=== PATIENT | female | born 1955 | race Two or more races ===

== ENCOUNTER 2016-06-17 09:24 | Inpatient (IN) | payer MEDICARE, MEDICAID ==
[~2016-06-17] VITALS: Ht 162.6 cm; Wt 83.0 kg
[~2016-06-17 09:24] MED LIST: ACCUCHECK; AMIN30LI2 GT; ATOR10TA GT; CHOL200026 GT; DEXT15DR6 OP; DILT30TA2 GT; DOCU-25 GT; FOLI0.8T2 GT; FOLI1TAB16 GT; HYDR10SY12 GT; INSU100V10 SQ; LEVE1000 GT; LEVO50TA8 GT; LISI-603 GT; OMEP40CA37 GT
[2016-06-17] MEDS ORDERED: ONDA4TAB5 GT (09:47)
[2016-06-17] MEDS ORDERED: SIME80TA15 GT (09:47)
[2016-06-17] MEDS ORDERED: MIDO10TA GT (09:47)
[2016-06-17] MEDS ORDERED: GEMF600T GT (09:47)
[2016-06-17] MEDS ORDERED: ACET650S26 GT (09:47)
[2016-06-17] MEDS ORDERED: BLOO-668 IN (09:47)
[2016-06-17] MEDS ORDERED: MINE3.5O EACHEYE (09:47)
[2016-06-17] MEDS ORDERED: ASPI81TA2 GT (09:47)
[2016-06-17] MEDS ORDERED: HYDR-3326 GT (09:47)
[2016-06-17] MEDS ORDERED: IPRA3AMP IH ×2 (09:47)
[2016-06-17] MEDS ORDERED: INSU100V11 SQ (09:47)
[2016-06-17] MEDS ORDERED: CALC667T2 GT (09:47)
[2016-06-17] MEDS ORDERED: LEVE100S GT (09:47)
[2016-06-17] MEDS ORDERED: FERR220S2 GT (09:47)
[2016-06-17] MEDS ORDERED: SENN8.6T6 GT (09:47)
[2016-06-17] MEDS ORDERED: NUT.237L67 GT (09:48)
--- NOTE | 2016-06-17 09:51 | NUR ---
PT REC'D TO ER VIA EMS PT CAME FROM [facility] . WAS IN A CHAIR HAD 17 MINS LEFT FOR DIALYSIS . HAD SYNOPE EPI. AND WAS BROUGHT TO THE FLOOR COMPRESSIONS X3 . WHEN EMS ARRIVED PT HAD A PULSE AND WAS MOVING ARMS LEFT SHUNT WAS PULLED AND TUBING LEFT . RT FA 24G HEPLOCKED AND RT WRIST 20G HEPLOCKED LAB AT BEDSIDE LABS DRAWN SENT TO LAB. EKG DONE AND ABD LARGE GTUBE PRESENT PT HAD LARGE LITE BROWN STOOL . PT CLEANED AND SKIN ON BUTTOCKS CLEAR RECTAL TEMP 96.7 . PT RESPONSE TO COMMAONS . XRAY DONE .AWAITING EVALUATION BY ER PROVIDER.
[2016-06-17 10:06] LABS: BASOPHILS # (AUTO) 0.1 /CMM (0.0-0.2); BASOPHILS % (AUTO) 0.8 % (0.0-2.0); EOSINOPHILS # (AUTO) 0.2 /CMM (0.0-0.7); EOSINOPHILS % (AUTO) 1.9 % (0.0-6.0); HEMATOCRIT 38 % (33-45); HEMOGLOBIN 12.4 g/dL (11.5-14.8); LYMPHOCYTES # (AUTO) 0.7 /CMM (0.8-4.8); LYMPHOCYTES % (AUTO) 6.8 % (20.0-44.0); MEAN CORPUSCULAR HEMOGLOBIN 33 PG (26.0-33.0); MEAN CORPUSCULAR HGB CONC 32 g/dl (31.0-36.0); MEAN CORPUSCULAR VOLUME 102 fL (82-100); MONOCYTES # (AUTO) 0.7 /CMM (0.1-1.30); MONOCYTES % (AUTO) 6.5 % (2.0-12.0); PLATELET COUNT (AUTO) 177 /CMM (150-450); RED BLOOD CELL COUNT(AUTO) 3.75 MIL/uL (4.0-5.2); WHITE BLOOD COUNT (AUTO) 10.7 K/uL (4.3-11.0)
--- NOTE | 2016-06-17 10:09 | NUR ---
VENT 12 O2 PEEP5 40% SATS 97 %. RT AT BEDSIDE
[2016-06-17 10:15] VITALS: BP 127/54
[2016-06-17 10:23] LABS: TROPONIN I < 0.017 ng/mL (0.00-0.056)
[2016-06-17 10:26] LABS: ALANINE AMINOTRANSFERASE 29 U/L (12-78); ALBUMIN 3.3 g/dL (3.4-5.0); ALKALINE PHOSPHATASE 264 U/L (46-116); ASPARTATE AMINOTRANSFERASE 30 U/L (15-37); BILIRUBIN,DIRECT 0.2 mg/dL (0.0-0.2); BILIRUBIN,TOTAL 0.5 mg/dL (0.2-1.0); CALCIUM, SERUM 10.6 mg/dL (8.5-10.1); CARBON DIOXIDE 24 mmol/L (21-32); CHLORIDE 96 mmol/L (98-107); CREATININE 3.1 mg/dL (0.6-1.3); GFR 15 mL/min (>60); GLUCOSE 237 mg/dL (74-106); POTASSIUM 3.5 mmol/L (3.5-5.1); SODIUM SERUM 136 mmol/L (136-145); UREA NITROGEN, BLOOD 34 mg/dL (7-18)
[2016-06-17 10:28] LABS: INR 1.03 (0.87-1.13); PROTHROMBIN TIME 10.7 SECS (9.5-12.7)
--- NOTE | 2016-06-17 10:34 | NUR ---
PAGED PRIMARY SCHOOL PRINCIPAL FOR LINDSEY YATES DNP
--- NOTE | 2016-06-17 10:39 | NUR ---
PT GOING TO 111-2 JAY
--- NOTE | 2016-06-17 10:50 | NUR ---
DR SON ON THE PHONE WITH NANCY YATES
--- NOTE | 2016-06-17 11:01 | NUR ---
TD/RN REPORT FROM - ER RECEIVED REPORT FROM ER NURSE GREGG FOR PT TO BE ADMITTED FOR SYNCOPE, UNDER THE CARE OF DR. YATES. AWAITING FOR PT'S ARRIVAL.
--- NOTE | 2016-06-17 11:15 | NUR ---
TD/MECHANICAL CAD DESIGNER TO TD FLOOR - 113#1 PT ARRIVED VIA GURNEY FROM ER ACCOMPANIED BY ER NURSE GREGG, TRANSPORT AID AND TEACHER LIP READING, TRANSFERRED TO HOSPITAL BED. RECONNECTED TO VENTILATOR SET AT PRESCRIBED RATES, SUCTIONED FOR AIRWAY CLEARANCE, SATURATING @ 98%, LUNG SOUNDS CLEAR. PT ALERT, A/O X 1-2, FOLLOWS COMMAND, ON TELE WITH SINUS RHYTHM, HR 95. GT CLAMP FLUSHED, PATENT. AV SHUNT OF RIGHT UPPER ARM STILL DIALYSIS NEEDLES, POSITIVE OF THRILL & BRUIT. IV SITES FLUSHED, PATENT WITH NO S/S OF INFECTION. SKIN INTACT, NOTED WITH NO EDEMA IN THE EXTREMITIES, BUT NOTED WITH PERIORBITAL EDEMA. PT ADMITTED FOR SYNCOPE, UNDER THE CARE OF DR. YATES. [facility] REPORTED THAT PT WAS ON DIALYSIS TX FOR 2 HOURS AND 20 MINS BEFORE SYNCOPE EPISODE. PT IS COMFORTABLE AT THIS TIME. CL WITHIN REACHED AND SAFETY MAINTAINED. AWAITING FOR ADMITTING ORDERS. ON GOING MONITORING.
--- NOTE | 2016-06-17 11:19 | NUR ---
REPORT CALLED TO FLOOR 113/1 SEBASTIEN RN . RT GUZMAN PT STABLE FOR TRANSFER .
[2016-06-17 12:00] VITALS: BP 111/64
[2016-06-17] MEDS ORDERED: Z GUARD REMEDY 2 OZ OINT TP PRN (13:00)
[2016-06-17] MEDS ORDERED: HYDROCODONE/APAP 10/325MG 1 EA TABLET PO PRN (13:00)
[2016-06-17] MEDS ORDERED: NEPRO VAN 237 ML CAN GT SCH (13:00)
[2016-06-17] MEDS ORDERED: ONDANSETRON HCL/PF 4 MG/2 ML VIAL IVP PRN (13:00)
[2016-06-17] MEDS ORDERED: ACETAMINOPHEN 325 MG TABLET PO PRN (13:00)
[2016-06-17] MEDS ORDERED: SIMETHICONE 80 MG TAB.CHEW GT PRN (13:00)
[2016-06-17] MEDS ORDERED: IV SET PRIMARY PUMP SET 1 EA INFUS.SET MC ONE (14:00)
[2016-06-17] MEDS: CALCIUM ACETATE 667 MG TABLET GT SCH ×2 (14:06→21:11)
[2016-06-17] MEDS: IV NS 0.9% 1,000 ML IV PRN (14:07)
[2016-06-17 16:00] VITALS: BP 115/54
--- NOTE | 2016-06-17 16:00 | NUR ---
TD/RN AFTERNOON ROUNDS PT'S DAUGHTER AT BEDSIDE. PM CARE PROVIDED. NO ACUTE CHANGE OF CONDITION NOTED SINCE PT WAS ADMITTED EARLIER THIS MORNING. PT A/O X 3, ABLE TO MOUTH WORDS, FOLLOWS COMMAND. PER DAUGHTER PT HAD A PASSEY VALVE IN SNF TO COMMUNICATE. SCHEDULED PM MEDS GIVEN, GT FEEDING STARTED. PT IS COMFORTABLE. CL WITHIN REACHED AND SAFETY MAINTAINED. MONITORING CONTINUED.
[2016-06-17] MEDS: LEVETIRACETAM SOL (5 ML) 100 MG/ML UDC GT SCH (16:40)
[2016-06-17] MEDS: LANOLIN/MIN OIL/PETROLAT,WHT 3.5 GM TUBE OP SCH ×2 (16:40→21:13)
[2016-06-17] MEDS: SENNOSIDES 8.6 MG TABLET GT SCH (16:41)
[2016-06-17] MEDS: RENAL NOVASOURCE 1,000 ML BOTTLE GT SCH (16:44)
--- NOTE | 2016-06-17 19:12 | NUR ---
TD/RN AM SHIFT END NOTES NO ACUTE CHANGE OF CONDITION NOTED SINCE PT WAS ADMITTED EARLIER IN THE DAY. NEEDS MET. ON VENTILATOR SET AT PRESCRIBED RATES, GT FEEDING ON GOING @ 40CC/HR, IV SITE WITH ON GOING HYDRATION OF NS @ 75CC/HR, PATENT, NO S/S OF INFECTION. PT ENDORSED TO PM NURSE TO CONTINUE CARE. CL WITHIN REACHED AND SAFETY MAINTAINED.
[2016-06-17 20:00] VITALS: BP 109/48
--- NOTE | 2016-06-17 20:00 | NUR ---
Received patient resting oriented x 3.Mouth words.Denies pain or any discomfort. 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 SR per monitor.VS stable.Hemodynamically stable.GT feeding in progress.No Residual noted. HOB elevated. Turned and repositioned to comfort.Continue monitoring.
[2016-06-17] MEDS ORDERED: SECONDARY IV SET 1 EA INFUS.SET MC ONE (20:16)
[2016-06-17] MEDS ORDERED: INSULIN DETEMIR 100 UNIT/ML CARTRIDGE SQ ONE (20:24)
[2016-06-17] MEDS: ATORVASTATIN 10 MG TABLET GT SCH (21:12)
[2016-06-17] MEDS: INSULIN DETEMIR 100 UNIT/ML CARTRIDGE SQ SCH (21:59)
--- NOTE | 2016-06-17 22:00 | NUR ---
JAY RN NOTES BLOOD SUGAR AT 10PM IS 377 -LEVEMIR 30 UNITS GIVEN SQ ORDERED.
[2016-06-18] VITALS: BP 108/62
[2016-06-18] MEDS: IV NS 0.9% 1,000 ML IV PRN ×2 (02:43→17:30)
[2016-06-18 04:00] VITALS: BP 112/46
[2016-06-18] MEDS: LANOLIN/MIN OIL/PETROLAT,WHT 3.5 GM TUBE OP SCH ×3 (05:16→21:37)
[2016-06-18] MEDS: CALCIUM ACETATE 667 MG TABLET GT SCH ×3 (05:16→21:36)
--- NOTE | 2016-06-18 06:40 | NUR ---
Patient resting.VS stable.GT feeding well tolerated.Secretions suctioned PRN.Oral care done. Trach care done.Turned and repositioned.Complaints of gas pains and abdomen distended. Mylicon administered as PRN with some relief.All due meds given.Safety maintained.
[2016-06-18 07:20] LABS: BASOPHILS % (AUTO) 0.6 % (0.0-2.0); EOSINOPHILS # (AUTO) 0.4 /CMM (0.0-0.7); HEMATOCRIT 28 % (33-45); HEMOGLOBIN 9.2 g/dL (11.5-14.8); LYMPHOCYTES # (AUTO) 0.6 /CMM (0.8-4.8); LYMPHOCYTES % (AUTO) 11.2 % (20.0-44.0); MEAN CORPUSCULAR HEMOGLOBIN 34 PG (26.0-33.0); MEAN CORPUSCULAR HGB CONC 33 g/dl (31.0-36.0); MEAN CORPUSCULAR VOLUME 103 fL (82-100); MONOCYTES # (AUTO) 0.5 /CMM (0.1-1.30); MONOCYTES % (AUTO) 10.2 % (2.0-12.0); NEUTROPHILS # (AUTO) 3.6 /CMM (1.8-8.9); PLATELET COUNT (AUTO) 128 /CMM (150-450); RDW COEFFICIENT OF VARIATION 17.9 (11.5-15.0); RED BLOOD CELL COUNT(AUTO) 2.72 MIL/uL (4.0-5.2); WHITE BLOOD COUNT (AUTO) 5.2 K/uL (4.3-11.0)
--- NOTE | 2016-06-18 07:30 | NUR ---
RN NOTES RECEIVED PATIENT ON [facility] VENT WITH BREATHING NORMAL, EVEN AND UNLABORED. NO SOB NOTED. NO ACUTE DISTRESS NOTED. AFEBRILE. VENT SETTING REVIEWED AND VERIFIED. TOLERATED WELL. TELE MONITOR REVEALS SR, HR=80. IV R WRIST 20G IS PATENT AND INTACT, RUNNING IVF PER ORDER. ON GT FEED NOVASOURCE @ 40CC/HR. TOLERATED WELL. NO RESIDUAL NOTED. HOB ELEVATED. ASPIRATION PRECAUTION TAKEN. KEPT CLEAN, DRY AND COMFORTABLE. ALL NEEDS ATTENDED. SAFETY MEASURE OBSERVED. CALL LIGHT WITH IN REACH. WILL CONT TO MONITOR.
[2016-06-18 07:48] LABS: BILIRUBIN,TOTAL 0.4 mg/dL (0.2-1.0); CALCIUM, SERUM 8.5 mg/dL (8.5-10.1); CREATININE 3.8 mg/dL (0.6-1.3); PHOSPHORUS 3.3 mg/dL (2.5-4.9); POTASSIUM 4.1 mmol/L (3.5-5.1); THYROID STIMULATING HORMONE 2.01 uIU/mL (0.358-3.74)
[2016-06-18 07:49] LABS: ALBUMIN 2.5 g/dL (3.4-5.0); MAGNESIUM 1.6 mg/dL (1.8-2.4); TOTAL PROTEIN, SERUM 7.4 g/dL (6.4-8.2)
[2016-06-18 08:00] VITALS: BP 108/34
--- NOTE | 2016-06-18 08:00 | NUR ---
RN NOTES CALLED DR YATES REGARDING PATIENT CRITICAL GLUCOSE RESULTS. WAITING FOR CALL BACK.
--- NOTE | 2016-06-18 08:30 | NUR ---
RN NOTES CALLED DR YATES AGAIN REGARDING PATIENT CRITICAL GLUCOSE RESULTS. WAITING FOR CALL BACK. CHARGE NURSE SOON AWARE. WILL CONT TO MONITOR.
[2016-06-18] MEDS: ASPIRIN 81 MG TAB.CHEW GT SCH (08:36)
[2016-06-18] MEDS: LEVETIRACETAM SOL (5 ML) 100 MG/ML UDC GT SCH ×2 (08:36→17:24)
[2016-06-18] MEDS: SENNOSIDES 8.6 MG TABLET GT SCH ×2 (08:36→17:24)
--- NOTE | 2016-06-18 09:00 | NUR ---
RN NOTES STILL WAITING FOR CALL BACK FROM DR YATES REGARDING LAB RESULTS. CHARGE NURSE SOON AWARE. WILL CONT TO MONITOR.
--- NOTE | 2016-06-18 09:15 | NUR ---
RN NOTES MD DR SUAREZ MADE AWARE REGARDING PATIENT CRITICAL GLUCOSE RESULTS WITH NO SLIDING SCALE. RECEIVED ORDER TO START PATIENT ON MODERATED SLIDING SCALE WITH HIGH INSULIN DOSE PER LEVEL FOR NOW. ORDER NOTED AND CARRIED OUT. WILL CONT TO MONITOR.
[2016-06-18] MEDS ORDERED: DEXTROSE 50%-WATER 50 ML DISP.SYRIN IV PRN (09:30)
[2016-06-18] MEDS: BLOOD SUGAR DIAGNOSTIC 1 EACH STRIP IN SCH ×4 (09:41→23:15)
[2016-06-18] MEDS: INSULIN REGULAR, HUMAN 100 UNIT/ML 3 ML VIAL SQ PRN ×4 (09:44→23:21)
--- NOTE | 2016-06-18 10:00 | NUR ---
RN NOTES RECEIVED CALL FROM DR YATES. DR YATES MADE AWARE REGARDING NEW ORDER FROM DR SUAREZ FOR CRITICAL GLUCOSE RESULTS.
[2016-06-18 12:00] VITALS: BP 114/36
[2016-06-18] MEDS: FENOFIBRATE NANOCRYS (145 MG) 145 MG TABLET GT SCH (12:54)
--- NOTE | 2016-06-18 15:14 | NUR ---
PT IS HAVING DIALYSIS. PT IS ON VENT. SHE WILL CALL WHEN READY.
[2016-06-18] MEDS ORDERED: ALBUMIN 25% 25 GM in PREMIX 1 EA IV ONE (15:30)
[2016-06-18] MEDS ORDERED: SECONDARY IV SET 1 EA INFUS.SET MC ONE ×2 (15:43→20:25)
[2016-06-18 16:00] VITALS: BP 94/48
--- NOTE | 2016-06-18 19:02 | NUR ---
RN NOTES PATIENT ENDORSED TO NEXT SHIFT IN STABLE CONDITION WITH BREATHING NORMAL, EVEN AND UNLABORED. NO SOB NOTED. NO ACUTE DISTRESS NOTED. KEPT CLEAN, DRY AND COMFORTABLE. ALL NEEDS ATTENDED. SAFETY MEASURE OBSERVED. CALL LIGHT WITH IN REACH. WILL CONT TO MONITOR.
--- NOTE | 2016-06-18 19:13 | NUR ---
[facility]. [facility] WITH NOTED SETTINGS. VENT ALARM CHECKED AND AUDIBLE. VENT PLUGGED INTO RED OUTLET, TRACH SECURE IN AND IN PROPER POSITION. CUFF CHECKED LANG PATH THERAPIST. SXN SMALL AMOUNT OF THICK YELLOWISH SECRETIONS. NO RESPIRATORY DISTRESS NOTED AT THIS TIME. AMBU BAG AT BEDSIDE. WILL CONTINUE TO MONITOR.
--- NOTE | 2016-06-18 19:25 | NUR ---
RN NOTES RELAYED LAB RESULTS MAGNESIUM 1.[address] YATES WITH ORDER TO GIVE 3GM MAGNESIUM IV. ORDER NOTED AND CARRIED OUT. WILL CONT TO MONITOR.
[2016-06-18] MEDS ORDERED: Magnesium 1GM/D5W 100ML PREMIX PIGGYBACK IV ONE (19:30)
--- NOTE | 2016-06-18 19:56 | NUR ---
CAPSULE FILLER: PT IN BED WITH EYES CLOSED. RESPONDS TO VERBAL AND TACTILE STIMULATION. ON TRACH/VENT. TOLERATING THE SETTING WELL. ON TELE SR WITH PAC HR 83. NO DISTRESS OR DISCOMFORT NOTED. DENIES PAIN. IVF NS @ 75 ML/HR INFUSING WELL, NO S/S OF INFILTRATION NOTED RT WRIST # 20 G. GT FEEDING NOVASOURCE INFUSING AT 40 ML/HR, 0 ML RESIDUAL NOTED. REPOSITION HER FOR SKIN AND COMFORT MEASURES. FAMILY AT BED SIDE. SIDE RAILS UP X 3 AND CALL LIGHT WITHIN REACH. VSS. CONTINUE TO MONITOR HER.
[2016-06-18 20:00] VITALS: BP 124/51
[2016-06-18] MEDS ORDERED: Magnesium 1GM/D5W 100ML PREMIX 300 ML IV ONE (20:24)
[2016-06-18] MEDS: Magnesium 1GM/D5W 100ML PREMIX 100 ML IV SCH ×3 (20:29→22:40)
[2016-06-18] MEDS: ATORVASTATIN 10 MG TABLET GT SCH (21:36)
[2016-06-18] MEDS: RENAL NOVASOURCE 1,000 ML BOTTLE GT SCH (21:46)
[2016-06-18] MEDS: INSULIN DETEMIR 100 UNIT/ML CARTRIDGE SQ SCH (23:19)
[2016-06-19] VITALS (7 sets, daily range): BP systolic 99–151; BP diastolic 36–66
--- NOTE | 2016-06-19 02:05 | NUR ---
AUTOMOTIVE SERVICE TECHNICIAN PT C/O PAIN ALL OVER 08/26, NORCO 1 TAB VIA GT GIVEN. CONTINUE TO MONITOR HER.
--- NOTE | 2016-06-19 03:00 | NUR ---
JAY RN PAIN SUBSIDED 03/28. PT FALL ASLEEP, AROUSABLE. CONTINUE TO MONITOR HER.
[2016-06-19] MEDS: LANOLIN/MIN OIL/PETROLAT,WHT 3.5 GM TUBE OP SCH ×3 (05:21→21:57)
[2016-06-19] MEDS: CALCIUM ACETATE 667 MG TABLET GT SCH ×3 (05:21→21:54)
[2016-06-19] MEDS: BLOOD SUGAR DIAGNOSTIC 1 EACH STRIP IN SCH ×4 (05:21→23:27)
[2016-06-19] MEDS: INSULIN REGULAR, HUMAN 100 UNIT/ML 3 ML VIAL SQ PRN ×4 (05:21→23:30)
--- NOTE | 2016-06-19 06:35 | NUR ---
SOLE CUTTER NOTE PT IN BED ASLEEP, AROUSABLE. NO DISTRESS OR DISCOMFORT NOTED. DENIES PAIN. NO S/S OF HYPO OR HYPERGLYCEMIA NOTED. IVF INFUSING WELL NO S/S OF INFILTRATION NOTED. GT FEEDING INFUSING WELL, 0 ML RESIDUAL NOTED. KEPT HOB ELEVATED. KEPT HER DRY AND CLEAN. ALL NEEDS ATTENDED. SIDE RAILS UP X 2 AND CALL LIGHT WITHIN REACH. WILL ENDORSE TO DAY SHIFT NURSE FOR CONTINUE TO CARE.
--- NOTE | 2016-06-19 07:26 | NUR ---
PT IS UNRESPONSIVE , SUCTION DONE SMALL THIN AND WTHIT SECRETION COMES OUT . NO RESP DISTRESS Addendum: 06/19/16 at 0728 by MARCELINA DONOVAN RT Amended: Links added.
[2016-06-19 07:30] LABS: CALCIUM, SERUM 8.6 mg/dL (8.5-10.1); CREATININE 3.1 mg/dL (0.6-1.3); MAGNESIUM 2.5 mg/dL (1.8-2.4); PHOSPHORUS 2.7 mg/dL (2.5-4.9); POTASSIUM 3.7 mmol/L (3.5-5.1)
--- NOTE | 2016-06-19 07:30 | NUR ---
RN NOTES RECEIVED PATIENT ON [facility] VENT WITH BREATHING NORMAL, EVEN AND UNLABORED. NO SOB NOTED. NO ACUTE DISTRESS NOTED. AFEBRILE. VENT SETTING REVIEWED AND VERIFIED. TOLERATED WELL. TELE MONITOR REVEALS SR, HR=80. IV R WRIST 20G IS PATENT AND INTACT, RUNNING IVF PER ORDER. ON GT FEED NOVASOURCE @ 40CC/HR. TOLERATED WELL. NO RESIDUAL NOTED. HOB ELEVATED. ASPIRATION PRECAUTION TAKEN. KEPT CLEAN, DRY AND COMFORTABLE. ALL NEEDS ATTENDED. SAFETY MEASURE OBSERVED. CALL LIGHT WITH IN REACH. WILL CONT TO MONITOR.
[2016-06-19 08:10] LABS: BASOPHILS % (AUTO) 0.7 % (0.0-2.0); EOSINOPHILS # (AUTO) 0.5 /CMM (0.0-0.7); EOSINOPHILS % (AUTO) 9.6 % (0.0-6.0); HEMATOCRIT 30 % (33-45); LYMPHOCYTES # (AUTO) 0.7 /CMM (0.8-4.8); LYMPHOCYTES % (AUTO) 12.1 % (20.0-44.0); MEAN CORPUSCULAR HEMOGLOBIN 34 PG (26.0-33.0); MEAN CORPUSCULAR HGB CONC 33 g/dl (31.0-36.0); MEAN CORPUSCULAR VOLUME 102 fL (82-100); MONOCYTES # (AUTO) 0.4 /CMM (0.1-1.30); MONOCYTES % (AUTO) 7.9 % (2.0-12.0); NEUTROPHILS % (AUTO) 69.7 % (43.0-81.0); PLATELET COUNT (AUTO) 137 /CMM (150-450); RED BLOOD CELL COUNT(AUTO) 2.96 MIL/uL (4.0-5.2); WHITE BLOOD COUNT (AUTO) 5.7 K/uL (4.3-11.0)
[2016-06-19] MEDS: LEVETIRACETAM SOL (5 ML) 100 MG/ML UDC GT SCH ×2 (09:00→17:57)
[2016-06-19] MEDS: SENNOSIDES 8.6 MG TABLET GT SCH ×2 (09:00→17:57)
[2016-06-19] MEDS: FENOFIBRATE NANOCRYS (145 MG) 145 MG TABLET GT SCH (09:00)
[2016-06-19] MEDS: ASPIRIN 81 MG TAB.CHEW GT SCH (09:00)
--- NOTE | 2016-06-19 09:12 | NUR ---
SETTING IS THE SAME NO CHANGE . PT UNRESPONSIVE AND NO ANY RESPIRATORY DISTRESS.
--- NOTE | 2016-06-19 11:00 | NUR ---
PT HAD MODERATE THICK YELLOW SECRETION ON SUCTION. Addendum: 06/19/16 at 1104 by MARCELINA DONOVAN RT Amended: Links added.
[2016-06-19] MEDS: IV NS 0.9% 1,000 ML IV PRN (12:15)
--- NOTE | 2016-06-19 12:55 | NUR ---
SHE TRANSFERRED TO MEDIA BUYER FOR CAT SCAN. THEN RETURN BACK TO ROOM. NO DISTRESS. NO CHANGE IN SETTING Addendum: 06/19/16 at 1256 by MARCELINA DONOVAN RT Amended: Links added.
--- NOTE | 2016-06-19 17:50 | NUR ---
RN NOTES TRANSPORTATION CAME TO PICK PATIENT FOR DISCHARGE. PATIENT NOTED WITH BP 102/37. CALLED FACILITY AND SPEAK WITH HOLLIE QUIROGA, REFUSED TO TAKE PATIENT BACK WITH THIS BP. CALLED DR YATES AND RECEIVED ORDER TO GIVE BOLUS NS 250CC. ORDER NOTED AND CARRIED OUT. WILL CONT TO MONITOR.
[2016-06-19] MEDS ORDERED: SECONDARY IV SET 1 EA INFUS.SET MC ONE (18:22)
[2016-06-19] MEDS: IV NS 0.9% 250 ML IV ONE ×2 (18:29→18:34)
[2016-06-19] MEDS ORDERED: IV NS 0.9% 250 ML BAG IV ONE (18:30)
--- NOTE | 2016-06-19 20:00 | NUR ---
COTTON GINNER NOTE RECEIVED PT IN BED WITH EYES CLOSED. AROUSABLE. A/O X 2, FINNISH SPEAKING. ABLE TO RESPONDS TO VERBAL COMMANDS. CONTINUE TO VENT/TRACK. TOLERATING THE VENT SETTINGS. NO DISTRESS OR DISCOMFORT NOTED. DENIES PAIN. NS 250 ML BOLUS INFUSING AT THIS TIME DUE TO LOW BP. PT SUPPOSE TO BE DISCHARGED ONCE B/P IS STABLE. BP STILL ON LOW SIDE. SIDE RAILS UP X 3 AND CALL LIGHT WITHIN REACH. CONTINUE TO MONITOR HER.
--- NOTE | 2016-06-19 20:38 | NUR ---
PHILOSOPHY FACULTY NOTE BOLUS 250 NS FINISHED. B/P REMAIN LOW 87/34. DR KELECHI KAY, GAVE NEW ORDER TO KEEP THE PT IN HOSPITAL FOR TONIGHT, AND INCREASE THE NS TO 100 ML/HR. ORDER NOTED AND CARRIED OUT. INFORMED THE CHARGE NURSE ALMA.
--- NOTE | 2016-06-19 20:40 | NUR ---
SPIRAL WINDING MACHINE HELPER NOTE INFORMED THE PA FACILTY THAT PT'S B/P IS STILL LOW AND PT IS NOT GOING TO BE DISCHARGE TONIGHT.
[2016-06-19] MEDS: ATORVASTATIN 10 MG TABLET GT SCH (21:54)
[2016-06-19] MEDS: INSULIN DETEMIR 100 UNIT/ML CARTRIDGE SQ SCH (23:29)
[2016-06-20] VITALS: BP 122/44
[2016-06-20 00:02] VITALS: BP 122/44
[2016-06-20] MEDS ORDERED: IV NS 0.9% 1,000 ML ONE (01:22)
[2016-06-20] MEDS ORDERED: IV NS 0.9% 1,000 ML BAG IV PRN (01:30)
[2016-06-20 04:00] VITALS: BP 135/55
[2016-06-20] MEDS: CALCIUM ACETATE 667 MG TABLET GT SCH (05:53)
[2016-06-20] MEDS: LANOLIN/MIN OIL/PETROLAT,WHT 3.5 GM TUBE OP SCH (05:53)
[2016-06-20] MEDS: BLOOD SUGAR DIAGNOSTIC 1 EACH STRIP IN SCH ×2 (05:55→12:00)
[2016-06-20] MEDS: INSULIN REGULAR, HUMAN 100 UNIT/ML 3 ML VIAL SQ PRN (05:57)
[2016-06-20] MEDS: RENAL NOVASOURCE 1,000 ML BOTTLE GT SCH (06:35)
--- NOTE | 2016-06-20 07:01 | NUR ---
BIAS MACHINE OPERATOR HELPER PT IN BED ASLEEP, AROUSABLE. NO DISTRESS OR DISCOMFORT NOTED. DENIES PAIN. REMAIN ON VENT TOLERATING THE SETTING. ON TELE SR SIDE RAILS UP X 2 AND CALL LIGHT WITHIN REACH. WILL ENDORSE TO DAY SHIFT NURSE FOR CONTINUE TO CARE.
[2016-06-20 07:24] LABS: BASOPHILS % (AUTO) 0.6 % (0.0-2.0); EOSINOPHILS # (AUTO) 0.6 /CMM (0.0-0.7); EOSINOPHILS % (AUTO) 10.6 % (0.0-6.0); HEMATOCRIT 29 % (33-45); HEMOGLOBIN 9.8 g/dL (11.5-14.8); LYMPHOCYTES # (AUTO) 0.6 /CMM (0.8-4.8); LYMPHOCYTES % (AUTO) 12.1 % (20.0-44.0); MEAN CORPUSCULAR HEMOGLOBIN 35 PG (26.0-33.0); MEAN CORPUSCULAR HGB CONC 34 g/dl (31.0-36.0); MEAN CORPUSCULAR VOLUME 102 fL (82-100); MONOCYTES # (AUTO) 0.5 /CMM (0.1-1.30); MONOCYTES % (AUTO) 8.6 % (2.0-12.0); NEUTROPHILS # (AUTO) 3.6 /CMM (1.8-8.9); NEUTROPHILS % (AUTO) 68.1 % (43.0-81.0); PLATELET COUNT (AUTO) 125 /CMM (150-450); RDW COEFFICIENT OF VARIATION 17.9 (11.5-15.0); RED BLOOD CELL COUNT(AUTO) 2.85 MIL/uL (4.0-5.2); WHITE BLOOD COUNT (AUTO) 5.3 K/uL (4.3-11.0)
[2016-06-20 08:00] VITALS: BP 99/39
[2016-06-20 08:03] LABS: CALCIUM, SERUM 8.6 mg/dL (8.5-10.1); CREATININE 3.7 mg/dL (0.6-1.3); MAGNESIUM 2.5 mg/dL (1.8-2.4); PHOSPHORUS 3.7 mg/dL (2.5-4.9); POTASSIUM 4.2 mmol/L (3.5-5.1)
--- NOTE | 2016-06-20 08:24 | NUR ---
RN NOTES 0700 PT A/O TO NAME AND PLACE. VS STABLE AT THIS TIME. ALL SAFETY MEASURES IMPLEMENTED. DEANDRE CONTINUE TO MONITOR CARE.
[2016-06-20] MEDS ORDERED: IV NS 0.9% 1,000 ML IV PRN (08:30)
--- NOTE | 2016-06-20 09:00 | NUR ---
RN AM NOTES RECEIVED PATIENT IN STABLE CONDITION, WITH NO SOB OR DISTRESS NOTED. BP STILL STABILIZING. PLAN TO DISCHARGE ONCE BLOOD PRESSURE STABILIZES. DISCHARGE PACKET COMPLETE. AWAITING TRANSFER CRITERIA. WILL CONTINUE TO MONITOR.
--- NOTE | 2016-06-20 09:00 | NUR ---
ENDORSED PATIENT TO NEXT NURSE IN STABLE CONDITION, WITH PARAMETERS OF ACCEPTABLE BP FOR READMIT BACK TO SNF AT [facility], PER HOLLIE QUIROGA AT [facility].
--- NOTE | 2016-06-20 09:30 | NUR ---
RN NOTES RECEIVED PT ON BED, A/Ox2 , RECEIVING HD AT THIS TIME, TRACH CARE DONE, TOLERATING TF WELL, NO RESIDUAL NOTED, CONTINUE TO MONITOR PT CLOSELY
[2016-06-20] MEDS ORDERED: SECONDARY IV SET 1 EA INFUS.SET MC ONE (09:51)
[2016-06-20] MEDS ORDERED: ALBUMIN 25% 25 GM in PREMIX 1 EA IV ONE (10:30)
--- NOTE | 2016-06-20 10:30 | NUR ---
RN NOTES BP 98/41 AT THIS TIME
[2016-06-20] MEDS: SENNOSIDES 8.6 MG TABLET GT SCH (10:36)
[2016-06-20] MEDS: ASPIRIN 81 MG TAB.CHEW GT SCH (10:36)
[2016-06-20] MEDS: LEVETIRACETAM SOL (5 ML) 100 MG/ML UDC GT SCH (10:36)
[2016-06-20] MEDS: FENOFIBRATE NANOCRYS (145 MG) 145 MG TABLET GT SCH (10:36)
[2016-06-20 12:00] VITALS: BP 130/47
--- NOTE | 2016-06-20 12:13 | NUR ---
RN NOTES TUBE FEEDING OFF PT GOING TO SNF SOON . RF=920. NO COVERAGE GIVEN . ALISON AT [facility] NOTIFIED
--- NOTE | 2016-06-20 12:45 | NUR ---
RN NOTE RAPPORT GIVEN TO EMT PERSONNEL, DISCHARGE PHOTO TAKEN , PT LEFT THE FLOOR TO SNF IN STABLE CONDITION ACCOMPANIED BY EMT PERSONAL.
== END 2016-06-20 12:36 | DRG 640 ==
LOC: ER 09:26 → TELE-TD 10:44 → TELE1 06-18 11:23
PROVIDERS: ADMIT Nurse Practitioner Acute Care; ATTEND Nurse Practitioner Acute Care
PROC: 5A1945Z Respiratory Ventilation, 24-96 Consecutive Hours (ICD-10-PCS; principal; 2016-06-17)
PROC: 5A1D60Z (ICD-10-PCS; 2016-06-17)
DX: E87.8 Other disorders of electrolyte and fluid balance, not elsewhere classified (principal); N18.6 End stage renal disease; I12.0 Hypertensive chronic kidney disease with stage 5 chronic kidney disease or end stage renal disease; Z99.11 Dependence on respirator [ventilator] status; D68.59 Other primary thrombophilia; J96.11 Chronic respiratory failure with hypoxia; E86.0 Dehydration; E11.22 Type 2 diabetes mellitus with diabetic chronic kidney disease; Z99.2 Dependence on renal dialysis; Z95.1 Presence of aortocoronary bypass graft; E11.65 Type 2 diabetes mellitus with hyperglycemia; I25.10 Atherosclerotic heart disease of native coronary artery without angina pectoris; E78.5 Hyperlipidemia, unspecified; D63.8 Anemia in other chronic diseases classified elsewhere; Z93.0 Tracheostomy status; Z93.1 Gastrostomy status; I48.91 Unspecified atrial fibrillation; Z79.82 Long term (current) use of aspirin
CPT/HCPCS: 31720; 36415; 70450-TC; 71010-TC; 80048-TC; 80053-TC; 80061-TC; 80076-TC; 82962-TC; 83735-TC; 84100-TC; 84443-TC; 84484-TC; 85025-TC; 85730-TC; 87081-TC; 90935-TC; 94002-TC; 94003-TC; A4216; A4606; A6403; J1815; J1953; J3475; J7030; J7050; P9047; Z7610

== ENCOUNTER 2016-06-27 10:34 | Inpatient (IN) | payer MEDICARE, MEDICAID ==
[~2016-06-27] VITALS: Ht 165.1 cm; Wt 83.2 kg
[~2016-06-27 10:34] MED LIST changes: -ACCUCHECK; +ACET650S26 GT; +ASPI81TA2 GT; +BLOO-668 IN; +CALC667T2 GT; -DEXT15DR6 OP; -DILT30TA2 GT; -DOCU-25 GT; +FERR220S2 GT; +GEMF600T GT; +HYDR-3326 GT; +INSU100V11 SQ; +IPRA3AMP IH; -LEVE1000 GT; +LEVE100S GT; -LEVO50TA8 GT; -LISI-603 GT; +MIDO10TA GT; +MINE3.5O EACHEYE; +NUT.237L67 GT; +ONDA4TAB5 GT; +SENN8.6T6 GT; +SIME80TA15 GT
--- NOTE | 2016-06-27 10:36 | NUR ---
AAOX3, BIB PA FROM DIALYSIS CENTER FOR CHEST DISCOMFORT X 2 WEEKS, NON RADIATING. PATIENT FINISHED HER DIALYSIS. VENT SETTINGS: AC=12, YH=740, FIO2=40% PEEP=5. RESP IS EVEN AND UNLABORED WITH NAD NOTED. SKIN IS WARM AND DRY. PLACED ON MONITOR. WILL CONTINUOUSLY MONITOR THE PATIENT. AWAITING MD FOR EVAL.
[2016-06-27] MEDS ORDERED: MORPHINE SULFATE INJ 2 MG/ML DISP.SYRIN IV ONE (11:00)
[2016-06-27] MEDS ORDERED: ONDANSETRON HCL/PF 4 MG/2 ML VIAL IVP ONE (11:00)
--- NOTE | 2016-06-27 11:00 | NUR ---
PATIENT REFUSED MORPHINE, DR CHI MADE AWARE.
[2016-06-27 11:02] VITALS: BP 127/58
[2016-06-27] MEDS ORDERED: MORPHINE SULFATE INJ 4 MG/ML DISP.SYRIN ONE (11:06)
[2016-06-27] MEDS ORDERED: ONDANSETRON HCL/PF 4 MG/2 ML VIAL ONE (11:06)
[2016-06-27 11:13] LABS: BASOPHILS % (AUTO) 0.4 % (0.0-2.0); EOSINOPHILS # (AUTO) 0.4 /CMM (0.0-0.7); EOSINOPHILS % (AUTO) 3.1 % (0.0-6.0); HEMATOCRIT 27 % (33-45); HEMOGLOBIN 9.2 g/dL (11.5-14.8); LYMPHOCYTES # (AUTO) 0.5 /CMM (0.8-4.8); LYMPHOCYTES % (AUTO) 4.7 % (20.0-44.0); MEAN CORPUSCULAR HEMOGLOBIN 35 PG (26.0-33.0); MEAN CORPUSCULAR HGB CONC 34 g/dl (31.0-36.0); MEAN CORPUSCULAR VOLUME 103 fL (82-100); MONOCYTES # (AUTO) 0.5 /CMM (0.1-1.30); MONOCYTES % (AUTO) 4.7 % (2.0-12.0); NEUTROPHILS # (AUTO) 9.9 /CMM (1.8-8.9); NEUTROPHILS % (AUTO) 87.1 % (43.0-81.0); PLATELET COUNT (AUTO) 161 /CMM (150-450); RDW COEFFICIENT OF VARIATION 16.8 (11.5-15.0); RED BLOOD CELL COUNT(AUTO) 2.64 MIL/uL (4.0-5.2); WHITE BLOOD COUNT (AUTO) 11.3 K/uL (4.3-11.0)
[2016-06-27 11:24] LABS: CALCIUM, SERUM 9.9 mg/dL (8.5-10.1); CARBON DIOXIDE 27 mmol/L (21-32); CHLORIDE 101 mmol/L (98-107); CREATININE 1.9 mg/dL (0.6-1.3); GFR 27 mL/min (>60); GLUCOSE 128 mg/dL (74-106); POTASSIUM 3.1 mmol/L (3.5-5.1); SODIUM SERUM 138 mmol/L (136-145); UREA NITROGEN, BLOOD 24 mg/dL (7-18)
[2016-06-27 11:28] LABS: PROTHROMBIN TIME 10.7 SECS (9.5-12.7)
[2016-06-27 11:32] LABS: TROPONIN I < 0.017 ng/mL (0.00-0.056)
[2016-06-27 11:36] LABS: B-TYPE NATRIURETIC PEPTIDE 13735 PG/ML (0-125)
--- NOTE | 2016-06-27 12:32 | NUR ---
CALLED NURSING SUP. FOR TELE BED
--- NOTE | 2016-06-27 12:55 | NUR ---
LINDSEY PAGED, CLOTH MENDER
--- NOTE | 2016-06-27 13:17 | NUR ---
REPORT GIVEN TO JUNAID LEES FOR DONIS TELE 113-1
[2016-06-27] MEDS ORDERED: HYDROCODONE/APAP 5/325MG 1 EACH TABLET PO PRN (13:30)
[2016-06-27] MEDS ORDERED: MAG HYDROX/AL HYDROX/SIMETH 30 ML UDC PO PRN (13:30)
[2016-06-27] MEDS ORDERED: ONDANSETRON HCL/PF 4 MG/2 ML VIAL IVP PRN (13:30)
[2016-06-27] MEDS ORDERED: Z GUARD REMEDY 2 OZ OINT TP PRN (13:30)
[2016-06-27] MEDS ORDERED: ACETAMINOPHEN 325 MG TABLET PO PRN (13:30)
[2016-06-27] MEDS ORDERED: ZOLPIDEM TARTRATE 5 MG TABLET PO PRN (13:30)
[2016-06-27] MEDS ORDERED: MAGNESIUM HYDROXIDE 30 ML UDC PO PRN (13:30)
--- NOTE | 2016-06-27 14:05 | NUR ---
PATIENT TRANSFERRED TO ROOM 113 IN JAY IN STABLE CONDITION
--- NOTE | 2016-06-27 15:00 | NUR ---
RN INITIAL NOTES RECEIVED REPORT FROM ER, RECEIVED PT IN BED, ABLE TO MAKE NEEDS KNOWN, PT IS ON [facility] VENT SHILEY 6XLT AC 12 TV 500 FIO2 40% PEEP5, NO S/S RESP.DISTRESS OR SOB NOTED AT THIS TIME, SATING WELL, PT IS ON TELE MONITOR SR @ 83, NO C/O OF PAIN OR DISCOMFORT AT THIS TIME, PT HAS GTUBE, CLAMPED, PT IS ANURIC, PT HAS RAC # 20G,SL, C/D/I/PATENT, FLUSHING WELL, NO S/S OF INFECTION/ INFILTRATION NOTED AT THIS TIME, PT HAS SHAHIDA AV SHUNT, DRESSING INTACT, DRY AND CLEAN, ALL SAFETY MEASURES IN PLACE AT ALL TIMES, CALL LIGHT WITHIN EASY REACH, WILL MONITOR PT CLOSELY FOR CHANGES
--- NOTE | 2016-06-27 15:57 | NUR ---
RN NOTES CALLED DAUGHTER CHERISE [phone], PT RECEIVED PNA AND FLU VACCINE, DAUGHTER STATED" PT IS FULL CODE", NOTIFIED DAUGHTER PT IS HERE IN 113-1.
[2016-06-27 16:00] VITALS: BP 151/46
[2016-06-27] MEDS ORDERED: Z GUARD REMEDY 4 OZ OINT TP PRN (16:00)
--- NOTE | 2016-06-27 17:37 | NUR ---
RN NOTES NOTIFIED DR. LYN REGARDING MED RECON, PER MD CONT. ALL HOME MEDICATIONS, MED LIST FAXED TO PHARM.
[2016-06-27] MEDS ORDERED: HYDROCODONE/APAP 5/325MG 1 EACH TABLET GT PRN (18:00)
[2016-06-27] MEDS ORDERED: ACETAMINOPHEN 650 MG/20.3 ML UDC GT PRN (18:00)
[2016-06-27] MEDS ORDERED: BLOOD SUGAR DIAGNOSTIC 1 EACH STRIP IN SCH (18:00)
[2016-06-27] MEDS ORDERED: ONDANSETRON 4 MG TAB.RAPDIS GT PRN (18:30)
[2016-06-27] MEDS ORDERED: MIDODRINE HCL (5MG) 5 MG TABLET PO PRN (18:30)
--- NOTE | 2016-06-27 18:50 | NUR ---
RN CLOSING NOTES PT REMAINED STABLE DURING SHIFT, ALL MD ORDERS CARRIED OUT, ALL MEDICATIONS GIVEN, ALL TREATMENTS CARRIED OUT, PT KEPT CLEAN AND DRY, IV REMAINS INTACT, G TUBE CLAMPED, ALL SAFETY MEASURES IN PLACE AT ALL TIMES, CALL LIGHT WITHIN EASY REACH, REPORT WILL BE GIVEN TO PM RN FOR DONIS
[2016-06-27] MEDS ORDERED: DEXTROSE 50%-WATER 50 ML DISP.SYRIN IV PRN (19:00)
--- NOTE | 2016-06-27 19:30 | NUR ---
RN INITIAL NOTE RECEIVED PT IN NO ACUTE DISTRESS IN BED. PT IS A/O X 3 AND ABLE TO MAKE NEEDS KNOWN BY MOUTHING WORDS. PT IS ON MECHANICAL VENT VIA TRACH. TRACH SITE IS CLEAN DRY AND INTACT. PT TOLERATING VENT SETTING WELL. PT NOT SHOWING ANY S/S OF SOB, DIFFICULTY BREATHING OR PAIN AT THIS TIME. PT HAS RAC 20G THAT IS CLEAND RY INTACT AND PATENT WITH SALINE FLUSH. PT HAS SHAHIDA AV SHUNT FOR HD. BED IN LOW LOCK POSITION WITH RIALS UP X 2. CALL LIGHT WITHIN REACH AND ALL SAFETY MEASURES ENSURED AND CARRIED OUT. WILL CONTINUE TO MONITOR PT.
[2016-06-27 20:00] VITALS: BP 138/60
[2016-06-27] MEDS: hydrOXYzine HCL SYRUP 10 MG/5 ML UDC GT SCH (21:23)
[2016-06-27] MEDS: CALCIUM ACETATE 667 MG TABLET GT SCH (21:23)
[2016-06-27] MEDS: LEVETIRACETAM SOL (5 ML) 100 MG/ML UDC GT SCH (21:23)
[2016-06-27] MEDS: ATORVASTATIN 10 MG TABLET GT SCH (21:24)
[2016-06-27] MEDS: INSULIN DETEMIR 100 UNIT/ML CARTRIDGE SQ SCH (21:30)
[2016-06-27 23:55] VITALS: BP 138/60
[2016-06-28] VITALS (7 sets, daily range): BP systolic 110–155; BP diastolic 33–63
[2016-06-28] MEDS: BLOOD SUGAR DIAGNOSTIC 1 EACH STRIP IN SCH ×5 (00:39→23:21)
[2016-06-28] MEDS: hydrOXYzine HCL SYRUP 10 MG/5 ML UDC GT SCH ×3 (05:47→21:27)
[2016-06-28] MEDS: CALCIUM ACETATE 667 MG TABLET GT SCH ×3 (05:47→21:27)
--- NOTE | 2016-06-28 06:46 | NUR ---
RN CLOSING NOTE PT REMAINS IN NO ACUTE DISTRESS IN BED. PT DID NOT HAVE ANY SIGNIFICANT CHANGE IN CONDITION. PT TOLERATED VENT SETTING WELL. WILL ENDORSE TO AM RN FOR CONTINUITY OF CARE.
--- NOTE | 2016-06-28 07:00 | NUR ---
RN INITIAL NOTE RECEIVED PT IN NO ACUTE DISTRESS IN BED. PT IS A/O X 3 AND ABLE TO MAKE NEEDS KNOWN BY MOUTHING WORDS. PT IS ON MECHANICAL VENT VIA TRACH. TRACH SITE IS CLEAN DRY AND INTACT. PT TOLERATING VENT SETTING WELL. PT NOT SHOWING ANY S/S OF SOB, DIFFICULTY BREATHING OR PAIN AT THIS TIME. PT HAS RAC 20G THAT IS CDI AND PATENT WITH SALINE FLUSH. PT HAS SHAHIDA AV SHUNT FOR HD. BED IN LOW LOCK POSITION WITH RIALS UP X 2. CALL LIGHT WITHIN REACH AND ALL SAFETY MEASURES ENSURED AND CARRIED OUT. WILL CONTINUE TO MONITOR PT.
[2016-06-28 07:36] LABS: EOSINOPHILS # (AUTO) 0.7 /CMM (0.0-0.7); HEMATOCRIT 29 % (33-45); HEMOGLOBIN 9.8 g/dL (11.5-14.8); LYMPHOCYTES # (AUTO) 0.5 /CMM (0.8-4.8); LYMPHOCYTES % (AUTO) 7.2 % (20.0-44.0); MEAN CORPUSCULAR HEMOGLOBIN 35 PG (26.0-33.0); MEAN CORPUSCULAR HGB CONC 34 g/dl (31.0-36.0); MEAN CORPUSCULAR VOLUME 103 fL (82-100); MONOCYTES # (AUTO) 0.6 /CMM (0.1-1.30); MONOCYTES % (AUTO) 7.5 % (2.0-12.0); NEUTROPHILS # (AUTO) 5.7 /CMM (1.8-8.9); NEUTROPHILS % (AUTO) 76.3 % (43.0-81.0); PLATELET COUNT (AUTO) 161 /CMM (150-450); RDW COEFFICIENT OF VARIATION 17.1 (11.5-15.0); RED BLOOD CELL COUNT(AUTO) 2.84 MIL/uL (4.0-5.2); WHITE BLOOD COUNT (AUTO) 7.5 K/uL (4.3-11.0)
--- NOTE | 2016-06-28 07:44 | NUR ---
Received female jeffrey pt on mechanical vent. Pt jeffrey is secure. Vent is plugged into a red outlet, alarms are audible, and BVM is at bedside. Addendum: 06/28/16 at 1341 by KATIE PARK RT Amended: Links added.
[2016-06-28 08:19] LABS: CALCIUM, SERUM 9.7 mg/dL (8.5-10.1); CREATININE 3.1 mg/dL (0.6-1.3); MAGNESIUM 2.3 mg/dL (1.8-2.4); PHOSPHORUS 3.6 mg/dL (2.5-4.9); POTASSIUM 3.6 mmol/L (3.5-5.1)
[2016-06-28] MEDS: PANTOPRAZOLE 40 MG TABLET.DR PO SCH (08:44)
[2016-06-28] MEDS: FERROUS SULFATE UDC 300 MG/5 ML UDC GT SCH (08:44)
[2016-06-28] MEDS: LEVETIRACETAM SOL (5 ML) 100 MG/ML UDC GT SCH ×2 (08:44→21:27)
[2016-06-28] MEDS: ASPIRIN 81 MG TAB.CHEW GT SCH (08:44)
[2016-06-28] MEDS: CHOLECALCIFEROL 1,000 UNIT TABLET (VIT D3) GT SCH (08:44)
[2016-06-28] MEDS: VIT B CMPLX 3/FA/VIT C/BIOTIN 1 TAB TABLET PO SCH (08:44)
[2016-06-28] MEDS: GEMFIBROZIL 600 MG TABLET GT SCH ×2 (08:44→17:27)
[2016-06-28] MEDS ORDERED: Medication Not On Formulary EA (Omeprazole 40 MG) GT SCH (09:00)
--- NOTE | 2016-06-28 10:39 | NUR ---
WOUND CARE CONSULT: PT PRESENTS WITH INCONTINENCE. PT ON KALI ISOFLEX LOW AIRLOSS BED. ALL SKIN PROTECTION MEASURES IN PLACE AND DISCUSSED WITH NURSING STAFF. WILL SEE PRN. KLEIN IN AGREEMENT WITH PLAN OF CARE. Addendum: 06/28/16 at 1040 by MARGRET BACON WNDNU NIYA SCORE IS 11.
[2016-06-28] MEDS ORDERED: INSULIN LISPRO/ASPART 100 UNIT/ML CARTRIDGE SQ PRN (12:00)
[2016-06-28] MEDS ORDERED: SECONDARY IV SET 1 EA INFUS.SET MC ONE (12:36)
[2016-06-28] MEDS: FOLIC ACID 1 MG TABLET GT SCH (12:42)
[2016-06-28] MEDS: SIMETHICONE 80 MG TAB.CHEW GT PRN (21:26)
[2016-06-28] MEDS: ATORVASTATIN 10 MG TABLET GT SCH (21:27)
[2016-06-28] MEDS: INSULIN DETEMIR 100 UNIT/ML CARTRIDGE SQ SCH (22:00)
--- NOTE | 2016-06-28 23:10 | NUR ---
RN NOTES: PATIENT'S BLOOD SUGAR IS 190 MG/DL. LEVEMIR AND REGULAR INSULIN DOSES ARE BOTH HELD BECAUSE PATIENT IS NPO. CHARGE NURSE IS AWARE. WILL CONTINUE TO MONITOR.
[2016-06-29] VITALS: BP 127/39
[2016-06-29 04:00] VITALS: BP 144/52
[2016-06-29] MEDS: hydrOXYzine HCL SYRUP 10 MG/5 ML UDC GT SCH ×3 (05:24→22:08)
[2016-06-29] MEDS: CALCIUM ACETATE 667 MG TABLET GT SCH ×3 (05:24→22:04)
[2016-06-29] MEDS: BLOOD SUGAR DIAGNOSTIC 1 EACH STRIP IN SCH ×4 (05:32→23:31)
--- NOTE | 2016-06-29 05:33 | NUR ---
RN NOTES: PATIENT'S BLOOD SUGAR IS 163 MG/DL. INSULIN IS HELD BECAUSE PATIENT IS NPO.
--- NOTE | 2016-06-29 07:00 | NUR ---
RN INTIAL NOTE PT A/O X 3 ABLE TO MOUTH WORDS AND NOD. SHILEY#6, AC 12, TV 500 FI02 40% PEEP 5 NO S/S OF ACUTE SOB OR DISTRESS. TELE SR, IV RAC #20 SL FLUSH PATENT AND INTACT. SHAHIDA AV SHUNT - HD. PEG NPO. PT RESTING COMFORTABLY IN BED CLEAN WARM AND DRY. ALL SAFETY MEASURES IN PLACE. WILL CONTINUE TO MONITOR CLOSELY.
[2016-06-29 07:13] LABS: BASOPHILS % (AUTO) 0.7 % (0.0-2.0); EOSINOPHILS # (AUTO) 0.6 /CMM (0.0-0.7); EOSINOPHILS % (AUTO) 9.9 % (0.0-6.0); HEMATOCRIT 27 % (33-45); LYMPHOCYTES # (AUTO) 0.6 /CMM (0.8-4.8); LYMPHOCYTES % (AUTO) 9.1 % (20.0-44.0); MEAN CORPUSCULAR HEMOGLOBIN 35 PG (26.0-33.0); MEAN CORPUSCULAR HGB CONC 34 g/dl (31.0-36.0); MEAN CORPUSCULAR VOLUME 102 fL (82-100); MONOCYTES # (AUTO) 0.6 /CMM (0.1-1.30); MONOCYTES % (AUTO) 9.2 % (2.0-12.0); NEUTROPHILS # (AUTO) 4.5 /CMM (1.8-8.9); NEUTROPHILS % (AUTO) 71.1 % (43.0-81.0); PLATELET COUNT (AUTO) 172 /CMM (150-450); RDW COEFFICIENT OF VARIATION 17.2 (11.5-15.0); RED BLOOD CELL COUNT(AUTO) 2.61 MIL/uL (4.0-5.2); WHITE BLOOD COUNT (AUTO) 6.4 K/uL (4.3-11.0)
[2016-06-29 07:32] LABS: CALCIUM, SERUM 9.2 mg/dL (8.5-10.1); CREATININE 2.8 mg/dL (0.6-1.3); POTASSIUM 3.4 mmol/L (3.5-5.1)
[2016-06-29 08:00] VITALS: BP 120/33
[2016-06-29] MEDS: PANTOPRAZOLE 40 MG TABLET.DR PO SCH (09:15)
[2016-06-29] MEDS: ASPIRIN 81 MG TAB.CHEW GT SCH (09:15)
[2016-06-29] MEDS: LEVETIRACETAM SOL (5 ML) 100 MG/ML UDC GT SCH ×2 (09:15→22:04)
[2016-06-29] MEDS: GEMFIBROZIL 600 MG TABLET GT SCH ×2 (09:15→17:30)
[2016-06-29] MEDS: VIT B CMPLX 3/FA/VIT C/BIOTIN 1 TAB TABLET PO SCH (09:15)
[2016-06-29] MEDS: CHOLECALCIFEROL 1,000 UNIT TABLET (VIT D3) GT SCH (09:15)
[2016-06-29] MEDS: FERROUS SULFATE UDC 300 MG/5 ML UDC GT SCH (09:15)
[2016-06-29 12:00] VITALS: BP 121/40
[2016-06-29] MEDS: FOLIC ACID 1 MG TABLET GT SCH (12:11)
[2016-06-29] MEDS ORDERED: IV NS 0.9% 250 ML IV ONE ×3 (12:54→21:16)
[2016-06-29] MEDS ORDERED: IV SET PRIMARY PUMP SET 1 EA INFUS.SET MC ONE (12:54)
[2016-06-29] MEDS ORDERED: IV SET PRIMARY 1 EA INFUS.SET MC ONE (12:55)
[2016-06-29] MEDS: POTASSIUM CL. PREMIX PERIPHER. 50 ML IV SCH ×2 (13:18→13:30)
[2016-06-29] MEDS ORDERED: METRONIDAZOLE 500MG/ NS 100ML 500 MG in PREMIX 1 EA IV SCH (14:00)
--- NOTE | 2016-06-29 15:00 | NUR ---
RN NOTE SPOKE TO DAUGHTER AND GOT VERBAL AUTHORIZATION FOR CONSENT FOR CT. LACRILUBE OINTMENT 1 JENNA IN BOTH EYES BID.
[2016-06-29] MEDS ORDERED: IOHEXOL-350 100 ML VIAL IV ONE ×2 (15:03→21:16)
[2016-06-29] MEDS ORDERED: CT SWABBABLE VALVE TRANS SET 1 EA INFUS.SET MC ONE ×2 (15:03→21:16)
--- NOTE | 2016-06-29 15:34 | NUR ---
IV LINE IS NOT GOOD FOR CTA. RN WILL PUT IN NEW ONE AND CALL WHEN READY.
[2016-06-29 16:00] VITALS: BP_SYST 107; BP_SYST 137; BP_DIAS 35; BP_DIAS 53
--- NOTE | 2016-06-29 16:00 | NUR ---
RN NOTE TRANSPORTED TO CT W/ CONTRAST. IV INFILTRATED. CALL DR. LYN FOR ORDER FOR MIDLINE PLACEMENT. UNABLE TO FINISH 1/2 OF BAG OF POTASSIUM AND SECOND BAG OF POTASSIUM WELL FLAGYL IV DUE TO NO IV ACCESS. MIDLINE WILL BE STARTED @ 19:30 [address] LYN AWARE AND PHARMACY CONTACTED.
[2016-06-29] MEDS ORDERED: SECONDARY IV SET 1 EA INFUS.SET MC ONE ×2 (16:13→21:57)
[2016-06-29] MEDS ORDERED: POTASSIUM CL. PREMIX PERIPHER. 50 ML IV ONE (19:00)
--- NOTE | 2016-06-29 19:30 | NUR ---
EVP OF PRODUCTS & CO FOUNDER NOTES RECEIVED PT IN BED, AWAKE, ALERT AND VERBALLY RESPONSIVE TO STIMULI. DENIES ANY PAIN WHEN ASKED. DTR ON THE BEDSIDE. ON VENT SETTINGS ORDERED. NO ACUTE RESP. DISTRESS NOTED. MIDLINE NURSE IS HERE TO INSERT IV ACCESS. CLEAN AND DRY. WILL CONTINUE TO MONITOR.
--- NOTE | 2016-06-29 19:55 | NUR ---
RN CLOSING NOTE PT A/O X 3 ABLE TO MOUTH WORDS AND NOD. ANNELISE#6, AC 12, TV 500 FI02 40% PEEP 5 NO S/S OF ACUTE SOB OR DISTRESS. TELE SR, IV AWAITING MIDLINE INSERTION. SHAHIDA AV SHUNT - HD. PEG NPO. PT RESTING COMFORTABLY IN BED CLEAN WARM AND DRY. ALL SAFETY MEASURES IN PLACE. REPORT GIVEN TO PM NURSE FOR DONIS.
[2016-06-29 20:00] VITALS: BP 123/40
--- NOTE | 2016-06-29 21:07 | NUR ---
RN IS TRYING TO FIND OUT WHEN PT IS GOING TO HAVE DIALYSIS DONE BEFORE CT SCAN.
--- NOTE | 2016-06-29 21:52 | NUR ---
PT BACK FROM CT
--- NOTE | 2016-06-29 21:52 | NUR ---
@[id number]
[2016-06-29] MEDS: INSULIN DETEMIR 100 UNIT/ML CARTRIDGE SQ SCH (22:00)
[2016-06-29] MEDS: METRONIDAZOLE 500MG/ NS 100ML 500 MG in PREMIX 1 EA IV SCH (22:03)
[2016-06-29] MEDS: ATORVASTATIN 10 MG TABLET GT SCH (22:04)
[2016-06-30] VITALS (8 sets, daily range): BP systolic 113–151; BP diastolic 37–59
[2016-06-30] MEDS: METRONIDAZOLE 500MG/ NS 100ML 500 MG in PREMIX 1 EA IV SCH ×3 (04:55→20:34)
[2016-06-30] MEDS: hydrOXYzine HCL SYRUP 10 MG/5 ML UDC GT SCH ×3 (04:55→20:34)
[2016-06-30] MEDS: CALCIUM ACETATE 667 MG TABLET GT SCH ×3 (04:55→20:34)
[2016-06-30] MEDS: BLOOD SUGAR DIAGNOSTIC 1 EACH STRIP IN SCH ×3 (05:50→17:13)
--- NOTE | 2016-06-30 05:51 | NUR ---
BLOOD SUGAR CHECKED = 174 , NO INSULIN GIVEN DUE PT IS NPO.GTUBE FEEDING ON HOLD DUE TO LEAKING FROM THE GTUBE SITE.
[2016-06-30] MEDS ORDERED: IV NS 0.9% 250 ML IV ONE (06:04)
--- NOTE | 2016-06-30 06:39 | NUR ---
FATBACK TRIMMER NOTES PT REMAINS THE SAME THROUGHOUT THE SHIFT. GT SITE STILL LEAKING. TELE MONITOR READING = SR = 79. WILL ENDORSE PT TO THE NEXT SHIFT.
[2016-06-30 07:24] LABS: BASOPHILS % (AUTO) 0.3 % (0.0-2.0); EOSINOPHILS # (AUTO) 0.5 /CMM (0.0-0.7); EOSINOPHILS % (AUTO) 8.9 % (0.0-6.0); HEMATOCRIT 27 % (33-45); LYMPHOCYTES # (AUTO) 0.5 /CMM (0.8-4.8); MEAN CORPUSCULAR HEMOGLOBIN 34 PG (26.0-33.0); MEAN CORPUSCULAR HGB CONC 33 g/dl (31.0-36.0); MEAN CORPUSCULAR VOLUME 103 fL (82-100); MONOCYTES # (AUTO) 0.5 /CMM (0.1-1.30); MONOCYTES % (AUTO) 7.8 % (2.0-12.0); NEUTROPHILS # (AUTO) 4.5 /CMM (1.8-8.9); PLATELET COUNT (AUTO) 181 /CMM (150-450); RDW COEFFICIENT OF VARIATION 16.8 (11.5-15.0); RED BLOOD CELL COUNT(AUTO) 2.63 MIL/uL (4.0-5.2)
--- NOTE | 2016-06-30 07:30 | NUR ---
RN NOTEs RECEIVED PT RESTING IN BED, AROUSABLE TO VERBAL AND TACTILE STIMULI, NON-VERBAL, PT HAS TRACHE, ANNELISE#6, ON [facility] VENT SETTINGS AT AC 12, TV 500 FI02 40% PEEP 5 TOLERATING WELL NO S/S OF ACUTE SOB OR DISTRESS. SUCTIONED FOR AIRWAY CLEARANCE. TELE SR ON MONITOR. IV NS RUNNING TKO INFUSING ON RACHANA MIDLINE CDI. SHAHIDA AV SHUNT INTACT. PT HAS A PEG CURRENTLY NPO EXCEPT MEDS PER NIGHT NURSE REPORT GT HAS LEAKING, AWAITING GI CONSULT. ALL SAFETY MEASURES IN PLACE. REPOSITIONED FOR COMFORT. CALL LIGHT WITHIN REACH, WILL CONT TO MONITOR
[2016-06-30 07:38] LABS: CALCIUM, SERUM 9.4 mg/dL (8.5-10.1); CREATININE 2.8 mg/dL (0.6-1.3); POTASSIUM 4.2 mmol/L (3.5-5.1)
--- NOTE | 2016-06-30 07:42 | NUR ---
RT PT RECEIVED TRACHED ON THE VENT WITH NOTED SETTINGS. PT IS AWAKE AND ALERT. VENT ALARMS ARE SET AND AUDIBLE WITH BVM BY BEDSIDE. FOREIGN LANGUAGE PROFESSOR CUFF PRESSURE NOTED. VENT IS PLUGGED INTO RED OUTLET. NO RESPIRATORY DSITRESS NOTED AT THIS TIME, WILL CONTINUE TO MONITOR. Addendum: 06/30/16 at 1030 by SALUD CORADO RT Amended: Links added.
[2016-06-30] MEDS: FERROUS SULFATE UDC 300 MG/5 ML UDC GT SCH (08:16)
[2016-06-30] MEDS: LEVETIRACETAM SOL (5 ML) 100 MG/ML UDC GT SCH ×2 (08:17→20:34)
[2016-06-30] MEDS: PANTOPRAZOLE 40 MG TABLET.DR PO SCH (08:17)
[2016-06-30] MEDS: ASPIRIN 81 MG TAB.CHEW GT SCH (08:17)
[2016-06-30] MEDS: CHOLECALCIFEROL 1,000 UNIT TABLET (VIT D3) GT SCH (08:17)
[2016-06-30] MEDS: GEMFIBROZIL 600 MG TABLET GT SCH ×3 (08:17→18:18)
[2016-06-30] MEDS: VIT B CMPLX 3/FA/VIT C/BIOTIN 1 TAB TABLET PO SCH (08:17)
[2016-06-30] MEDS: FOLIC ACID 1 MG TABLET GT SCH (12:33)
[2016-06-30] MEDS ORDERED: SECONDARY IV SET 1 EA INFUS.SET MC ONE (12:36)
--- NOTE | 2016-06-30 14:50 | NUR ---
RN NOTES DR BURRIS AT BEDSIDE, REPORTED TO MD PT GT LEAKING, PT WAS SEEN AND EVALUATED PER MD HE WILL DO EGD TODAY AND GT PLACEMENT. CALLED JOANNA LUONG AT [facility] # [phone], LEFT A VOICE MESSAGE, AWAITING FOR CALL BACK. PT IS AWAKE ALERT ABLE TO COMMUNICATE AND AGREED WITH THE PROCEDURE BUT PT SAID SHE COULDNT SIGN CONSENT BECAUSE SHE'S BLIND BUT SHE AGREED WITH BOTH PROCEDURE, MD AWARE OF SITUATION.
--- NOTE | 2016-06-30 15:00 | NUR ---
RN NOTES PT AGREED TO PROCEED FOR EGD AND GT PLACEMENT, PT VERBALLY GAVE CONSENT, WITNESSED BY 2 RN ALFONSO AND SARAY, AND CLOTH DOFFER ALISON VALDOVINOS AT BEDSIDE
--- NOTE | 2016-06-30 15:15 | NUR ---
RN NOTES RECEIVED A CALL BACK FROM CHERISE, SHE SAID SHE'S GIVING CONSENT FOR 2 PROCEDURE, FOR EGD AND GT PLACEMENT, DR BURRIS AWARE CONSENT HAS BEEN SIGNED.
--- NOTE | 2016-06-30 16:40 | NUR ---
RN NOTES EGD AND GT PLACEMENT COMPLETED AT BEDSIDE BY DR BURRIS, PER MD MAY RESUME MEDS AND GTF ORDER
[2016-06-30] MEDS ORDERED: DIATR MEGLU/DIATRIZOATE SODIUM 30 ML BOTTLE (GASTROGRAPHIN) ONE (16:57)
[2016-06-30] MEDS ORDERED: RENAL NOVASOURCE 1,000 ML BOTTLE GT PRN (17:00)
[2016-06-30] MEDS: RENAL NOVASOURCE 1,000 ML BOTTLE GT PRN ×2 (17:13→18:19)
[2016-06-30] MEDS: INSULIN REGULAR, HUMAN 100 UNIT/ML 3 ML VIAL SQ PRN ×2 (18:25→23:51)
--- NOTE | 2016-06-30 19:30 | NUR ---
ELECTRICAL AND INSTRUMENTATION MECHANIC NOTES PT IS IN BED, HOB ELEVATED, ALERT ORIENTED X3 MACEDONIAN SPEAKING, TRACH IS INTACT, SHILEY 6 XLT, TV 500, 12 AC, 40% FI02, 5 PEEP. NO RESPIRATORY DISTRESS NOTED. ON TELE SINUS RHYTHM, IV SITES RACHANA MIDLINE 18G FLUSHED AND INTACT. ON CONTINOUS GT FEEDING NOVASOURCE RENAL @ 10ML/HR, RESIDUAL CHECKED, 30ML NOTED. ALL SAFETY MEASURES MAINTAINED, CALL LIGHTS WITHIN REACH.
--- NOTE | 2016-06-30 19:30 | NUR ---
PMO LEAD NOTES PT RESIDUAL CHECKED, 30CC NOTED, INCREASED FEEDING RATE TO 20CC/HR. WILL CONTINUE TO MONITOR.
--- NOTE | 2016-06-30 20:30 | NUR ---
GAS PUMP ATTENDANT NOTES NOTED A MINIMAL AMOUNT OF LEAKAGE AT THE GT SITE, 30CC RESIDUAL NOTED. WILL CHECK AGAIN AT 2129.
--- NOTE | 2016-06-30 21:30 | NUR ---
MERCHANDISER NOTES PT TOLERATING THE FEEDING - RESIDUAL CHECKED 30 CC NOTED, NO LEAKAGE, INCREASED FEEDING TO 30CC/HR, WILL CONTINUE TO MONITOR
[2016-06-30] MEDS: ATORVASTATIN 10 MG TABLET GT SCH (21:35)
[2016-06-30] MEDS: SIMETHICONE 80 MG TAB.CHEW GT PRN (21:35)
--- NOTE | 2016-06-30 21:58 | NUR ---
ETIQUETTE COACH NOTES DAUGHTER AT BEDSIDE, PER DAUGHTER PATIENT GETS [place] TEARS TWICE A DAY ON BOTH EYES FROM FACILITY. DR. YATES MADE AWARE WITH ORDERS NOTED AND CARRIED OUT.
[2016-06-30] MEDS ORDERED: LANOLIN/MIN OIL/PETROLAT,WHT 3.5 GM TUBE EACHEYE SCH (22:00)
[2016-06-30] MEDS: INSULIN DETEMIR 100 UNIT/ML CARTRIDGE SQ SCH (22:10)
--- NOTE | 2016-06-30 22:12 | NUR ---
SENIOR [employer] SYSTEMS PROGRAMMER NOTES NURSING SUBSTANCE ABUSE THERAPIST DOES NOT HAVE AKWA TEARS MEDICATION AVAILABLE, WILL FOLLOW UP WITH PHARMACY FOR MEDICATION AVAILABILITY.
--- NOTE | 2016-06-30 23:00 | NUR ---
APPLIANCE REPAIR TECHNICIAN NOTES PT IS RESIDUAL CHECKED - 20 CC NOTED, NO LEAKAGE, PT TOLERATING FEEDING, INCREASED FEEDING TO 45CC. WILL CONTINUE TO MONITOR.
[2016-07-01] VITALS: BP_SYST 155; BP_SYST 156; BP_DIAS 48; BP_DIAS 77
[2016-07-01] MEDS: BLOOD SUGAR DIAGNOSTIC 1 EACH STRIP IN SCH ×4 (00:17→18:01)
[2016-07-01 04:00] VITALS: BP 117/42
[2016-07-01] MEDS: CALCIUM ACETATE 667 MG TABLET GT SCH ×3 (05:30→21:21)
[2016-07-01] MEDS: METRONIDAZOLE 500MG/ NS 100ML 500 MG in PREMIX 1 EA IV SCH ×3 (05:30→21:21)
[2016-07-01] MEDS: hydrOXYzine HCL SYRUP 10 MG/5 ML UDC GT SCH ×3 (05:30→21:20)
--- NOTE | 2016-07-01 05:56 | NUR ---
CUTTER V GROOVE NOTE PT IS SCHEDULED FOR DIALYSIS. HD NURSE AT BEDSIDE.
[2016-07-01] MEDS ORDERED: IV NS 0.9% 250 ML IV ONE (06:28)
--- NOTE | 2016-07-01 06:50 | NUR ---
TELE CLOSING RN NOTES NO SIGNIFICANT CHANGES OVERNIGHT. NO S/SX OF RESPIRATORY DISTRESS NOTED, TOLERATED VENT SETTINGS, TRACH DONE. GT FEEDING GOAL RATE MET AT 45ML/HR, MINIMAL RESIDUAL NOTED, NO COMPLAINS OF N/V, DENIES GI DISCOMFORT. GT PATENT AND INTACT. SINUS RHYTHM ON TELE MONITOR. MIDLINE PATENT AND INTACT WITH TKO. ALL NEEDS ANTICIPATED AND MET. KEPT CLEAN AND DRY, TURNED AND REPOSITIONED Q2H AND PRN. HD NURSE AT BEDSIDE. HOB KEPT ELEVATED, SIDERAILS UP AND LOCKED, BED AT LOWEST POSITION, CALL LIGHTS WITHIN REACH. WILL ENDORSE TO AM NURSE FOR CONTINUITY OF CARE.
--- NOTE | 2016-07-01 07:00 | NUR ---
RN INITIAL NOTES RECEIVED PT IN BED, ASLEEP, EASY TO AROUSE, PT IS ABLE TO MAKE NEEDS KNOWN, ESTONIAN SPEAKING, PT IS ON MECH VENT SHILEY 6 XLT AC 12 TV 500 FIO2 40% PEEP 5, NO RES. DISTRESS OR SOB NOTED AT THIS TIME, PT IS ON TELE MONITOR SHOWING SR @ 85 BPM, NO C/O OF PAIN OR DISTRESS NOTED, PT IS RECEIVING HD AT THIS TIME, PT HAS GTUBE, RUNNING NOVASOURCE @ 45ML/HR, TOLERATING WELL, NO RESIDUALS NOTED AT THIS TIME, PT HAS RACHANA MIDLINE, C/D/I/PATENT, FLUSHING WELL, SL, NO INFILTRATION/ INFECTION NOTED AT THIS TIME, [place] AV FISTULA, DRESSING INTACT, CLEAN AND DRY, ALL SAFETY MEASURES IN PLACE AT ALL TIMES, CALL LIGHT WITHIN EASY REACH, WILL MONITOR PT CLOSELY
[2016-07-01] MEDS ORDERED: SECONDARY IV SET 1 EA INFUS.SET MC ONE (07:39)
[2016-07-01 08:00] VITALS: BP 93/39
[2016-07-01] MEDS ORDERED: ALBUMIN 25% 25 GM in PREMIX 1 EA IV PRN (08:00)
[2016-07-01] MEDS: PANTOPRAZOLE 40 MG TABLET.DR PO SCH (08:36)
[2016-07-01] MEDS: CHOLECALCIFEROL 1,000 UNIT TABLET (VIT D3) GT SCH (08:36)
[2016-07-01] MEDS: LEVETIRACETAM SOL (5 ML) 100 MG/ML UDC GT SCH ×2 (08:36→21:21)
[2016-07-01] MEDS: GEMFIBROZIL 600 MG TABLET GT SCH ×2 (08:37→16:17)
[2016-07-01] MEDS: FERROUS SULFATE UDC 300 MG/5 ML UDC GT SCH (08:37)
[2016-07-01] MEDS: ASPIRIN 81 MG TAB.CHEW GT SCH (08:37)
[2016-07-01] MEDS: VIT B CMPLX 3/FA/VIT C/BIOTIN 1 TAB TABLET PO SCH (08:37)
--- NOTE | 2016-07-01 08:49 | NUR ---
RN NOTES HD COMPLETED, 2L OUT, G TUBE FEEDING ON HOLD, 100ML RESIDUAL NOTED, WILL RECHECK IN 1 HR
--- NOTE | 2016-07-01 10:53 | NUR ---
RN NOTES NON ADMINISTERED PINK MEDICATIONS FOR PT SAFETY
[2016-07-01 12:00] VITALS: BP 122/53
[2016-07-01] MEDS: FOLIC ACID 1 MG TABLET GT SCH (12:38)
--- NOTE | 2016-07-01 14:52 | NUR ---
RN NOTES RESTARTED TUBE FEEDING @ 30ML/HR, WILL RECHECK RESIDUALS
--- NOTE | 2016-07-01 15:22 | NUR ---
RT Patient received trach on mechanical vent. Breath sounds equal bilaterally. Vent settings as ordered. Vent plugged into red outlet and alarms set and audible. Ambu bag at the bed side.
--- NOTE | 2016-07-01 15:46 | NUR ---
Patient received trached on mechanical vent. Vent settings as ordered. Vent plugged into red outlet and alarms set and audible. Trach midline and breath sounds equal. Ambu bag at the bed side.
[2016-07-01 16:00] VITALS: BP 116/36
[2016-07-01] MEDS: LANOLIN/MIN OIL/PETROLAT,WHT 3.5 GM TUBE EACHEYE SCH (16:17)
--- NOTE | 2016-07-01 18:29 | NUR ---
RN CLOSING NOTES PT REMAINED STABLE DURING SHIFT, ALL MEDICATIONS GIVEN, ALL MD ORDERS CARRIED OUT, ALL TREATMENTS COMPLETED, IV C/D/I/PATENT, G TUBE FEEDING RUNNING ORDERED, ALL SAFETY MEASURES IN PLACE AT ALL TIMES, CALL LIGHT WITHIN EASY REACH, WILL GIVE REPORT TO PM RN FOR DONIS
[2016-07-01 20:00] VITALS: BP 128/35
[2016-07-01] MEDS: ATORVASTATIN 10 MG TABLET GT SCH (21:21)
[2016-07-01] MEDS: INSULIN DETEMIR 100 UNIT/ML CARTRIDGE SQ SCH (21:46)
--- NOTE | 2016-07-01 22:50 | NUR ---
RN DF PT ACCU CHECK OF 186 COVERED WITH LEVIMIR 30 UNITS.TOLERATING TUBE FEEDING.NO FEEDING RESIDUALS NOTED.WILL RECHECK GLUCOSE IN 1-2 HOURS/PRN.
[2016-07-02] VITALS: BP 114/40
--- NOTE | 2016-07-02 00:25 | NUR ---
RN DF PT ACCU CHECK OF 224 COVERED WITH RISS 4 UNITS REG INSULIN.TOLERATING TUBE FEEDING.NO FEEDING RESIDUALS NOTED.WILL RECHECK GLUCOSE IN 6 HOURS/PRN.
[2016-07-02] MEDS: BLOOD SUGAR DIAGNOSTIC 1 EACH STRIP IN SCH ×3 (00:26→12:08)
[2016-07-02] MEDS: INSULIN REGULAR, HUMAN 100 UNIT/ML 3 ML VIAL SQ PRN ×2 (00:26→06:07)
[2016-07-02] MEDS ORDERED: IV NS 0.9% 250 ML IV ONE (03:18)
[2016-07-02 04:00] VITALS: BP 131/41
[2016-07-02] MEDS: METRONIDAZOLE 500MG/ NS 100ML 500 MG in PREMIX 1 EA IV SCH ×2 (04:16→12:09)
[2016-07-02] MEDS: CALCIUM ACETATE 667 MG TABLET GT SCH ×2 (04:16→12:08)
[2016-07-02] MEDS: hydrOXYzine HCL SYRUP 10 MG/5 ML UDC GT SCH ×2 (04:16→12:08)
--- NOTE | 2016-07-02 04:37 | NUR ---
RN DF PT C/O GENERALIZED PAIN REQUESTING MEDICATION. MEDICATED PT WITH 1 TAB NORCO.
--- NOTE | 2016-07-02 04:57 | NUR ---
RT NOTES: PT HAS MINIMAL AMOUNT OF THIN LIGHT YELLOW SECRETIONS , VITALS ARE STABLE. WILL CONTINUE TO MONITOR.
[2016-07-02 08:00] VITALS: BP_SYST 101; BP_DIAS 28; BP_DIAS 78
--- NOTE | 2016-07-02 08:00 | NUR ---
RN NOTES SPOKE UMAIR CABRERA LEAD NETWORK ENGINEER, PER DEBORAH PT WILL BE DC'D TODY BACK TO SNF.
[2016-07-02] MEDS: FERROUS SULFATE UDC 300 MG/5 ML UDC GT SCH (08:41)
[2016-07-02] MEDS: LEVETIRACETAM SOL (5 ML) 100 MG/ML UDC GT SCH (08:41)
[2016-07-02] MEDS: GEMFIBROZIL 600 MG TABLET GT SCH (08:42)
[2016-07-02] MEDS: VIT B CMPLX 3/FA/VIT C/BIOTIN 1 TAB TABLET PO SCH (08:42)
[2016-07-02] MEDS: PANTOPRAZOLE 40 MG TABLET.DR PO SCH (08:42)
[2016-07-02] MEDS: CHOLECALCIFEROL 1,000 UNIT TABLET (VIT D3) GT SCH (08:42)
[2016-07-02] MEDS: ASPIRIN 81 MG TAB.CHEW GT SCH (08:42)
[2016-07-02] MEDS: LANOLIN/MIN OIL/PETROLAT,WHT 3.5 GM TUBE EACHEYE SCH (08:43)
[2016-07-02 12:00] VITALS: BP 111/36
[2016-07-02] MEDS: FOLIC ACID 1 MG TABLET GT SCH (12:08)
--- NOTE | 2016-07-02 12:57 | NUR ---
RN NOTES' CALLED [facility], REPORT GIVEN TO NURSE GIBSON, ESTIMATED TIME OF E/M ENGINEER IS 3610
--- NOTE | 2016-07-02 14:05 | NUR ---
RN NOTES PT DISCHARGED FROM UNIT IN STABLE CONDITION, EXITCARE PROVIDED. ALL PAPERWORK SENT WITH THE PT. TRANSPORTED TO [facility] VIA AMBULANCE ACCOMPANIED BY EMTX[facility] AND RT.
== END 2016-07-02 14:26 | DRG 207 ==
LOC: ER 10:36 → TELE1 13:22
PROVIDERS: ADMIT Family Medicine; ATTEND Family Medicine
PROC: 5A1955Z Respiratory Ventilation, Greater than 96 Consecutive Hours (ICD-10-PCS; principal; 2016-06-27)
PROC: 5A1D60Z (ICD-10-PCS; 2016-06-28)
PROC: 05H533Z Insertion of Infusion Device into Right Subclavian Vein, Percutaneous Approach (ICD-10-PCS; 2016-06-29)
PROC: 0DH63UZ Insertion of Feeding Device into Stomach, Percutaneous Approach (ICD-10-PCS; 2016-06-30)
DX: R09.1 Pleurisy (principal); N18.6 End stage renal disease; I50.33 Acute on chronic diastolic (congestive) heart failure; E43 Unspecified severe protein-calorie malnutrition; I13.2 Hypertensive heart and chronic kidney disease with heart failure and with stage 5 chronic kidney disease, or end stage renal disease; Z99.11 Dependence on respirator [ventilator] status; K94.23 Gastrostomy malfunction; D68.59 Other primary thrombophilia; R07.9 Chest pain, unspecified; Z99.2 Dependence on renal dialysis; R13.10 Dysphagia, unspecified; Z93.0 Tracheostomy status; Z95.1 Presence of aortocoronary bypass graft; Z98.61 Coronary angioplasty status; E78.5 Hyperlipidemia, unspecified; E11.22 Type 2 diabetes mellitus with diabetic chronic kidney disease; D72.829 Elevated white blood cell count, unspecified; I25.10 Atherosclerotic heart disease of native coronary artery without angina pectoris; I95.9 Hypotension, unspecified; Y83.3 Surgical operation with formation of external stoma as the cause of abnormal reaction of the patient, or of later complication, without mention of misadventure at the time of the procedure; K52.9 Noninfective gastroenteritis and colitis, unspecified; K80.20 Calculus of gallbladder without cholecystitis without obstruction; Z74.01 Bed confinement status; Z68.30 Body mass index [BMI] 30.0-30.9, adult; E66.9 Obesity, unspecified; D53.9 Nutritional anemia, unspecified; E87.6 Hypokalemia; H54.0 Blindness, both eyes; I48.91 Unspecified atrial fibrillation
CPT/HCPCS: 31720; 36415; 36569; 43246; 71010-TC; 74000-TC; 80048-TC; 80061-TC; 82962-TC; 83735-TC; 83880; 84100-TC; 84484-TC; 85025-TC; 85730-TC; 87081-TC; 90935-TC; 94002-TC; 94003-TC; 94760-TC; 99082-TC; A4216; A4606; A4623; A6253; A6403; J1815; J1953; J2270; J2405; J2704; J3480; J3490; J7050; P9047; Q0177; Q9963; Q9967; Z7610